=== PATIENT | male | born 1975 | race Caucasian/White ===

== ENCOUNTER 2018-10-13 02:25 | Emergency (ER) | payer MEDICAID ==
[~2018-10-13] VITALS: Ht 167.6 cm; Wt 65.8 kg
[2018-10-13 02:30] VITALS: Ht 167.6 cm; Wt 65.8 kg
[2018-10-13] MEDS ORDERED: CYCLOBENZAPRINE10 MG PO (02:47)
[2018-10-13] MEDS ORDERED: HYDROCODON-ACE1 EA10 PO (02:47)
[2018-10-13 03:26] VITALS: BP 131/82
== END 2018-10-13 03:26 | disposition home or self-care (01) ==
LOC: D.ER 02:25
DX: M54.5 Low back pain (principal)